=== PATIENT | male | born 1950 | race Caucasian/White ===

== ENCOUNTER 2018-11-28 10:00 | Inpatient (IN) ==
[2018-11-28] MEDS ORDERED: MAGNESIUM SULF RIDER 2 GM in PREMIX 1 EACH IV PRN ×2 (10:50→13:25)
[2018-11-28] MEDS ORDERED: ZALEPLON 5 MG CAPSULE PO PRN (10:50)
[2018-11-28] MEDS ORDERED: diphenhydrAMINE CAP 25 MG CAPSULE PO PRN (10:50)
[2018-11-28] MEDS ORDERED: PROMETHAZINE 25 MG TABLET PO PRN (10:50)
[2018-11-28] MEDS ORDERED: guaiFENesin/DM ER 600-30 MG TABLET PO PRN (10:50)
[2018-11-28] MEDS ORDERED: ACETAMINOPHEN 325 MG TABLET PO PRN (10:50)
[2018-11-28] MEDS ORDERED: ONDANSETRON 4 MG/2 ML VIAL IV PRN (10:50)
[2018-11-28] MEDS ORDERED: DOCUSATE SODIUM 100 MG CAPSULE PO PRN (10:50)
[2018-11-28] MEDS ORDERED: POTASSIUM CHLORIDE 20 MEQ TABLET PO PRN (10:50)
[2018-11-28] MEDS ORDERED: MORPHINE 4 MG/1 ML VIAL IV PRN (10:50)
[2018-11-28] MEDS ORDERED: MAGNESIUM SULF RIDER 4 GM in PREMIX 1 EACH IV PRN (10:50)
[2018-11-28 13:14] LABS: Basophils # 0.1 10*3/uL (0.0-0.2); Basophils % 0.7 % (0.0-0.8); Eosinophils # 0.1 10*3/uL (0.0-0.87); Eosinophils % 1.2 % (0.00-10.9); Hematocrit 45.5 VOL% (42.0-52.0); Hemoglobin 15.6 GM/DL (14.0-18.0); Immature Granulocytes % 0.9 %; Immature Granulocytes Absolute 0.07 #; Lymphocytes % 27.1 % (21.2-54.2); Mean Corpuscular HGB Conc 34.3 GM/DL (32-36); Mean Corpuscular Hemoglobin 34 PG (27-34); Mean Corpuscular Volume 100.4 FL (87-102); Mean Platelet Volume 9.2 FL (9.6-12.0); Monocytes # 0.9 10*3/uL (0.11-0.8); Monocytes % 12.1 % (1.7-12.7); Neutrophils # 4.3 10*3/uL (1.4-7.4); Platelet Count 184 T/CUMM (130-400); Red Blood Count 4.53 MC/CUMM (3.8-5.5); Red Cell Distribution Width 12.1 % (9.3-17.3); White Blood Count 7.5 T/CUMM (4-12)
[2018-11-28] MEDS ORDERED: POTASSIUM CHLORIDE RIDER 10 MEQ in PREMIX 1 EACH IV PRN (13:25)
[2018-11-28 13:34] LABS: Albumin 3.4 G/DL (3.4-5.0); Calcium 8.7 MG/DL (8.5-10.1); Osmolality,Calculated 263.7 MOS/KG (273-304); Potassium 3.8 MMOL/L (3.5-5.1); Total Protein 7.7 G/DL (6.4-8.3)
[2018-11-28 13:39] LABS: Troponin I 0.455 NG/ML (0.00-0.045)
[2018-11-28 13:42] LABS: Risk Ratio 3.79; Thyroid Stimulating Hormone 1.09 uIU/ml (0.358-3.74); VLDL CHOLESTEROL 30.4 MG/DL
[2018-11-28] MEDS: SODIUM CHLORIDE 0.45% 1,000 ML IV SCH (14:11)
[2018-11-28] MEDS ORDERED: HEPARIN/NACL 0.9% 2 UNITS/ML 1,000 ML IV ONE (14:22)
[2018-11-28] MEDS ORDERED: LIDOCAINE 1% 20 ML VIAL ONE (14:22)
[2018-11-28] MEDS ORDERED: DIAZEPAM 5 MG TABLET PO ONE (14:30)
[2018-11-28] MEDS: ALBUTEROL 2.5 MG/3 ML NEB RESP TX SCH ×2 (14:30→20:41)
[2018-11-28] MEDS ORDERED: diphenhydrAMINE CAP 25 MG CAPSULE PO ONE (14:30)
[2018-11-28] MEDS ORDERED: MIDAZOLAM 2 MG/2 ML VIAL ONE (15:11)
[2018-11-28] MEDS ORDERED: HYDROmorphone 2 MG/1 ML VIAL ONE (15:11)
[2018-11-28] MEDS ORDERED: MAGNESIUM SULF RIDER 50 ML IV ONE (15:11)
[2018-11-28] MEDS ORDERED: VERAPAMIL 5 MG/2 ML VIAL ONE (15:19)
[2018-11-28] MEDS ORDERED: NITROGLYCERIN DRIP 50 MG/250 ML BOTTLE IV ONE (15:19)
[2018-11-28] MEDS ORDERED: TICAGRELOR 90 MG TABLET ONE (15:36)
[2018-11-28] MEDS ORDERED: ASPIRIN 325 MG TABLET ONE (15:45)
[2018-11-28] MEDS ORDERED: BIVALIRUDIN 250 MG VIAL IV ONE (15:45)
[2018-11-28] MEDS ORDERED: HEPARIN/NACL 0.9% 2 UNITS/ML 500 ML IV ONE (16:28)
[2018-11-28] MEDS: INSULIN REGULAR 100 UNIT/ML SUBCUT SCH ×2 (16:34→21:00)
[2018-11-28] MEDS ORDERED: SODIUM CHLORIDE 0.9% 1,000 ML IV SCH (17:00)
[2018-11-28] MEDS ORDERED: hydrALAZINE 20 MG/1 ML VIAL ONE (17:04)
[2018-11-28] MEDS: MAGNESIUM OXIDE 400 MG TABLET PO SCH (21:00)
[2018-11-28] MEDS ORDERED: APIXABAN 5 MG TABLET PO SCH (21:00)
[2018-11-28] MEDS: CARVEDILOL 25 MG TABLET PO SCH (21:00)
[2018-11-28] MEDS: TICAGRELOR 90 MG TABLET PO SCH (21:00)
[2018-11-28 21:47] LABS: Apearance,Urine CLEAR (Clear); Bilirubin,Urine Negative (Negative); Blood, Urine Small mg/dL (Negative); Glucose,Urine (UA) Negative (Negative); Ketones,Urine Negative (Negative); Nitrite,Urine Negative (Negative); Protein,Urine Negative; RBC,Urine 5 /HPF (0-4); Urine Color Yellow (Yellow); Urine Urobilinogen < 2.0 EU/DL (0.2-1.0); WBC,Urine 1 /HPF (0-6)
[2018-11-29] MEDS: SODIUM CHLORIDE 0.45% 1,000 ML IV SCH ×3 (03:45→16:45)
[2018-11-29 04:49] LABS: Basophils % 0.4 % (0.0-0.8); Eosinophils # 0.2 10*3/uL (0.0-0.87); Eosinophils % 1.9 % (0.00-10.9); Hemoglobin 15.1 GM/DL (14.0-18.0); Immature Granulocytes % 1.1 %; Lymphocytes % 21.5 % (21.2-54.2); Mean Corpuscular HGB Conc 34.3 GM/DL (32-36); Mean Corpuscular Hemoglobin 35 PG (27-34); Mean Corpuscular Volume 100.5 FL (87-102); Mean Platelet Volume 9.6 FL (9.6-12.0); Monocytes % 11.1 % (1.7-12.7); Neutrophils # 5.9 10*3/uL (1.4-7.4); Platelet Count 177 T/CUMM (130-400); Red Blood Count 4.38 MC/CUMM (3.8-5.5); White Blood Count 9.2 T/CUMM (4-12)
[2018-11-29] MEDS: hydrALAZINE 20 MG/1 ML VIAL IV PRN ×2 (04:49→16:45)
[2018-11-29 05:09] LABS: Calcium 8.3 MG/DL (8.5-10.1); Osmolality,Calculated 260.7 MOS/KG (273-304); Potassium 3.8 MMOL/L (3.5-5.1)
[2018-11-29 05:13] LABS: CKMB % 6.1 %; Calcium 8.3 MG/DL (8.5-10.1); Osmolality,Calculated 256.9 MOS/KG (273-304); Potassium 3.8 MMOL/L (3.5-5.1)
[2018-11-29 05:16] LABS: Troponin I 13.3 NG/ML (0.00-0.045)
[2018-11-29 06:43] VITALS: BP 151/76
[2018-11-29] MEDS: ALBUTEROL 2.5 MG/3 ML NEB RESP TX SCH ×4 (07:08→19:44)
[2018-11-29] MEDS: CHOLECALCIFEROL 5,000 UNIT TABLET PO SCH (09:26)
[2018-11-29] MEDS: ASPIRIN EC 81 MG TABLET PO SCH (09:26)
[2018-11-29] MEDS: OLMESARTAN 20 MG TABLET PO SCH (09:27)
[2018-11-29] MEDS: sitaGLIPtin 100 MG TABLET PO SCH (09:28)
[2018-11-29] MEDS: POTASSIUM CHLORIDE 20 MEQ TABLET PO SCH (09:28)
[2018-11-29] MEDS: MAGNESIUM OXIDE 400 MG TABLET PO SCH ×2 (09:28→20:32)
[2018-11-29] MEDS: PANTOPRAZOLE 40 MG TABLET PO SCH (09:29)
[2018-11-29] MEDS: TICAGRELOR 90 MG TABLET PO SCH ×2 (09:29→20:31)
[2018-11-29] MEDS: CARVEDILOL 25 MG TABLET PO SCH ×2 (09:29→20:32)
[2018-11-29] MEDS: NON-FORMULARY MEDICATION (Umeclidinium Brm/Vilanterol Tr [Anoro Ellipta] 1 PUFF) INH SCH (09:31)
[2018-11-29] MEDS: INSULIN REGULAR 100 UNIT/ML SUBCUT SCH ×4 (10:49→20:32)
[2018-11-30] MEDS: ALBUTEROL 2.5 MG/3 ML NEB RESP TX SCH ×2 (06:53→10:44)
[2018-11-30 08:12] LABS: Basophils % 0.5 % (0.0-0.8); Eosinophils # 0.2 10*3/uL (0.0-0.87); Eosinophils % 2.3 % (0.00-10.9); Hematocrit 41.9 VOL% (42.0-52.0); Hemoglobin 14.3 GM/DL (14.0-18.0); Immature Granulocytes % 1.8 %; Immature Granulocytes Absolute 0.15 #; Lymphocytes # 2.2 10*3/uL (1.4-4.0); Mean Corpuscular HGB Conc 34.1 GM/DL (32-36); Mean Corpuscular Hemoglobin 34 PG (27-34); Mean Corpuscular Volume 100.2 FL (87-102); Mean Platelet Volume 9.6 FL (9.6-12.0); Monocytes # 1.2 10*3/uL (0.11-0.8); Monocytes % 13.7 % (1.7-12.7); Neutrophils # 4.8 10*3/uL (1.4-7.4); Neutrophils % 55.7 % (38.7-73.9); Platelet Count 171 T/CUMM (130-400); Red Blood Count 4.18 MC/CUMM (3.8-5.5); White Blood Count 8.6 T/CUMM (4-12)
[2018-11-30 08:34] LABS: Calcium 8.1 MG/DL (8.5-10.1); Osmolality,Calculated 252.4 MOS/KG (273-304); Potassium 3.8 MMOL/L (3.5-5.1)
[2018-11-30] MEDS: CHOLECALCIFEROL 5,000 UNIT TABLET PO SCH (08:40)
[2018-11-30] MEDS: PANTOPRAZOLE 40 MG TABLET PO SCH (08:40)
[2018-11-30] MEDS: OLMESARTAN 20 MG TABLET PO SCH (08:40)
[2018-11-30] MEDS: TICAGRELOR 90 MG TABLET PO SCH (08:40)
[2018-11-30] MEDS: POTASSIUM CHLORIDE 20 MEQ TABLET PO SCH (08:40)
[2018-11-30] MEDS: INSULIN REGULAR 100 UNIT/ML SUBCUT SCH ×2 (08:40→13:15)
[2018-11-30] MEDS: CARVEDILOL 25 MG TABLET PO SCH (08:40)
[2018-11-30] MEDS: sitaGLIPtin 100 MG TABLET PO SCH (08:40)
[2018-11-30] MEDS: MAGNESIUM OXIDE 400 MG TABLET PO SCH (08:40)
[2018-11-30] MEDS: ASPIRIN EC 81 MG TABLET PO SCH (08:40)
[2018-11-30] MEDS ORDERED: MAGNESIUM SULF RIDER 4 GM in PREMIX 1 EACH IV ONE (10:31)
[2018-11-30] MEDS: SODIUM CHLORIDE 0.45% 1,000 ML IV SCH ×2 (12:04→15:06)
[2018-11-30] MEDS: NON-FORMULARY MEDICATION (Umeclidinium Brm/Vilanterol Tr [Anoro Ellipta] 1 PUFF) INH SCH (12:04)
== END 2018-11-30 15:34 | disposition home or self-care (01) | DRG 247 ==
LOC: N.TELES → N.CC 17:06 → N.TELES 11-30 11:17 → N.CC 11-30 12:04
PROVIDERS: ADMIT Internal Medicine Cardiovascular Disease; ATTEND Internal Medicine Cardiovascular Disease
PROC: CLCCHCL (ICD-10-PCS; 2018-11-28 15:15)

== ENCOUNTER 2020-12-17 14:50 | Observation (INO) ==
[2020-12-17 15:29] LABS: Basophils % 0.5 % (0.0-0.8); Eosinophils # 0.1 10*3/uL (0.0-0.87); Eosinophils % 1.4 % (0.00-10.9); Hematocrit 49.3 VOL% (42.0-52.0); Hemoglobin 17.2 GM/DL (14.0-18.0); Immature Granulocytes % 1.1 %; Immature Granulocytes Absolute 0.08 #; Lymphocytes # 2.5 10*3/uL (1.4-4.0); Lymphocytes % 33.8 % (21.2-54.2); Mean Corpuscular HGB Conc 34.9 GM/DL (32-36); Mean Corpuscular Volume 101.6 FL (87-102); Mean Platelet Volume 9.6 FL (9.6-12.0); Monocytes % 9.6 % (1.7-12.7); Neutrophils % 53.6 % (38.7-73.9); Platelet Count 190 T/CUMM (130-400); Red Blood Count 4.85 MC/CUMM (3.8-5.5); Red Cell Distribution Width 12.3 % (9.3-17.3); White Blood Count 7.3 T/CUMM (4-12)
[2020-12-17 15:42] LABS: INR 1.1; PT Patient Result 12.1 SECS (9.8-11.9); Partial Thromboplastin Time 29.1 SECS (23.9-33.8)
[2020-12-17 16:23] LABS: Alanine Aminotransferase 28 U/L (16-61); Albumin 3.5 G/DL (3.4-5.0); Alkaline Phosphatase 79 U/L (45-117); Aspartate Amino Transferase 20 U/L (0-37); Blood Urea Nitrogen 19 MG/DL (7-18); Calcium 8.9 MG/DL (8.5-10.1); Carbon Dioxide 27 MMOL/L (21-32); Estimated Glom Filtration Rate 85 ML/MIN; Glucose 142 MG/DL (74-106); Osmolality,Calculated 269.4 MOS/KG (273-304); Potassium 4.5 MMOL/L (3.5-5.1); Sodium 133 MMOL/L (136-145); Thyroid Stimulating Hormone 0.868 uIU/ml (0.358-3.74); Total Protein 7.9 G/DL (5.0-7.5)
[2020-12-17 16:53] LABS: Barbiturates Screen,Urine Negative (Negative); Benzodiazepines Screen,Urine Negative (Negative); Cannabinoid Screen,Urine Negative (Negative); Opiate Screen,Urine Negative (Negative); Phencyclidine Screen,Urine Negative (Negative)
[2020-12-17 16:57] LABS: Bilirubin,Urine Negative (Negative); Blood, Urine Negative (Negative); Glucose,Urine (UA) Negative (Negative); Hyaline Casts,Urine 13 /LPF (0-3); Ketones,Urine Negative (Negative); Mucus,Urine Occasional /LPF (Occasional); Nitrite,Urine Negative (Negative); Protein,Urine Negative; RBC,Urine <1 /HPF (0-4); Squamous Epithelial Cell,Urine Occasional /HPF (0-10); Urine Appearance CLEAR (Clear); Urine Color Yellow (Yellow); Urine Specific Gravity 1.009 (1.001-1.035); WBC,Urine <1 /HPF (0-6)
[2020-12-17] MEDS ORDERED: ONDANSETRON 4 MG/2 ML VIAL IV PRN (18:14)
[2020-12-17] MEDS ORDERED: DEXTROSE 50% 25 GM/50 ML VIAL IV PRN ×2 (18:14→18:19)
[2020-12-17] MEDS ORDERED: ACETAMINOPHEN 325 MG TABLET PO PRN (18:14)
[2020-12-17] MEDS ORDERED: GLUCAGON 1 MG VIAL IM PRN (18:14)
[2020-12-17] MEDS ORDERED: LORazepam 2 MG/1 ML VIAL IV PRN (18:24)
[2020-12-17] MEDS: INSULIN REGULAR 100 UNIT/ML SUBCUT SCH (21:01)
[2020-12-17] MEDS: ASCORBIC ACID 500 MG TABLET PO SCH (21:02)
[2020-12-17] MEDS: GABAPENTIN 300 MG CAPSULE PO SCH (21:03)
[2020-12-17] MEDS: LACTULOSE 20 GM/30 ML UDCUP PO SCH (21:03)
[2020-12-17] MEDS: carvediloL 25 MG TABLET PO SCH (21:03)
[2020-12-17] MEDS: APIXABAN 5 MG TABLET PO SCH (21:03)
[2020-12-17] MEDS: MAGNESIUM OXIDE 400 MG TABLET PO SCH (21:03)
[2020-12-18] MEDS: ALBUTEROL 2.5 MG/3 ML NEB RESP TX SCH ×5 (00:29→19:32)
[2020-12-18 07:57] LABS: Basophils # 0.1 10*3/uL (0.0-0.2); Basophils % 0.8 % (0.0-0.8); Eosinophils # 0.1 10*3/uL (0.0-0.87); Eosinophils % 1.4 % (0.00-10.9); Hematocrit 49.4 VOL% (42.0-52.0); Hemoglobin 16.9 GM/DL (14.0-18.0); Immature Granulocytes % 1.2 %; Immature Granulocytes Absolute 0.09 #; Lymphocytes # 2.5 10*3/uL (1.4-4.0); Lymphocytes % 34.3 % (21.2-54.2); Mean Corpuscular HGB Conc 34.2 GM/DL (32-36); Mean Corpuscular Volume 103.1 FL (87-102); Mean Platelet Volume 9.6 FL (9.6-12.0); Monocytes % 11.5 % (1.7-12.7); Neutrophils % 50.8 % (38.7-73.9); Platelet Count 189 T/CUMM (130-400); Red Blood Count 4.79 MC/CUMM (3.8-5.5); Red Cell Distribution Width 12.3 % (9.3-17.3); White Blood Count 7.3 T/CUMM (4-12)
[2020-12-18 08:19] LABS: Albumin 3.3 G/DL (3.4-5.0); Bilirubin,Total 2.2 MG/DL (0.2-1.0); Calcium 8.9 MG/DL (8.5-10.1); Osmolality,Calculated 273.1 MOS/KG (273-304); Potassium 4.2 MMOL/L (3.5-5.1); Total Protein 7.6 G/DL (5.0-7.5)
[2020-12-18] MEDS: carvediloL 25 MG TABLET PO SCH ×2 (09:05→20:58)
[2020-12-18] MEDS: INSULIN REGULAR 100 UNIT/ML SUBCUT SCH ×4 (09:05→21:00)
[2020-12-18] MEDS: LACTULOSE 20 GM/30 ML UDCUP PO SCH ×3 (09:05→21:00)
[2020-12-18] MEDS: ASCORBIC ACID 500 MG TABLET PO SCH ×2 (09:06→21:01)
[2020-12-18] MEDS: APIXABAN 5 MG TABLET PO SCH ×2 (09:06→20:59)
[2020-12-18] MEDS: FOLIC ACID 1 MG TABLET PO SCH (09:06)
[2020-12-18] MEDS: THIAMINE 100 MG TABLET PO SCH (09:06)
[2020-12-18] MEDS: CHOLECALCIFEROL 5,000 UNIT TABLET PO SCH (09:06)
[2020-12-18] MEDS: POTASSIUM CHLORIDE 20 MEQ TABLET PO SCH (09:06)
[2020-12-18] MEDS: GABAPENTIN 300 MG CAPSULE PO SCH ×3 (09:06→20:58)
[2020-12-18] MEDS: MULTIVITAMIN (CENTRUM) TABLET PO SCH (09:06)
[2020-12-18] MEDS: PANTOPRAZOLE 40 MG TABLET PO SCH ×2 (09:07→09:19)
[2020-12-18] MEDS: LOSARTAN 50 MG TABLET PO SCH (09:07)
[2020-12-18] MEDS: MAGNESIUM OXIDE 400 MG TABLET PO SCH ×3 (09:07→20:58)
[2020-12-18] MEDS: ASPIRIN EC 81 MG TABLET PO SCH ×2 (09:07→09:17)
[2020-12-18] MEDS: NON-FORMULARY MEDICATION (Fluticasone-Umeclidin-Vilanter [Trelegy Ellipta] 100-62.5-25 mcg INH SCH (09:17)
[2020-12-19 06:49] LABS: Basophils # 0.1 10*3/uL (0.0-0.2); Basophils % 0.7 % (0.0-0.8); Eosinophils # 0.1 10*3/uL (0.0-0.87); Eosinophils % 1.5 % (0.00-10.9); Immature Granulocytes % 1.5 %; Immature Granulocytes Absolute 0.13 #; Lymphocytes # 2.5 10*3/uL (1.4-4.0); Lymphocytes % 27.8 % (21.2-54.2); Mean Corpuscular HGB Conc 33.3 GM/DL (32-36); Mean Corpuscular Volume 106.3 FL (87-102); Mean Platelet Volume 9.6 FL (9.6-12.0); Monocytes % 12.6 % (1.7-12.7); Neutrophils % 55.9 % (38.7-73.9); Platelet Count 194 T/CUMM (130-400); Red Cell Distribution Width 12.2 % (9.3-17.3)
[2020-12-19 07:27] LABS: Osmolality,Calculated 271.4 MOS/KG (273-304); Potassium 4.2 MMOL/L (3.5-5.1)
[2020-12-19] MEDS: ALBUTEROL 2.5 MG/3 ML NEB RESP TX SCH ×2 (07:41→10:46)
[2020-12-19] MEDS: carvediloL 25 MG TABLET PO SCH (09:00)
[2020-12-19] MEDS: INSULIN REGULAR 100 UNIT/ML SUBCUT SCH ×2 (09:00→12:07)
[2020-12-19] MEDS: LACTULOSE 20 GM/30 ML UDCUP PO SCH ×2 (09:00→09:03)
[2020-12-19] MEDS: MULTIVITAMIN (CENTRUM) TABLET PO SCH (09:00)
[2020-12-19] MEDS: ASCORBIC ACID 500 MG TABLET PO SCH (09:01)
[2020-12-19] MEDS: ASPIRIN EC 81 MG TABLET PO SCH ×2 (09:01→09:09)
[2020-12-19] MEDS: GABAPENTIN 300 MG CAPSULE PO SCH (09:01)
[2020-12-19] MEDS: MAGNESIUM OXIDE 400 MG TABLET PO SCH (09:01)
[2020-12-19] MEDS: FOLIC ACID 1 MG TABLET PO SCH ×2 (09:01→09:09)
[2020-12-19] MEDS: CHOLECALCIFEROL 5,000 UNIT TABLET PO SCH (09:01)
[2020-12-19] MEDS: LOSARTAN 50 MG TABLET PO SCH (09:01)
[2020-12-19] MEDS: POTASSIUM CHLORIDE 20 MEQ TABLET PO SCH (09:01)
[2020-12-19] MEDS: APIXABAN 5 MG TABLET PO SCH (09:02)
[2020-12-19] MEDS: PANTOPRAZOLE 40 MG TABLET PO SCH (09:02)
[2020-12-19] MEDS: THIAMINE 100 MG TABLET PO SCH (09:09)
[2020-12-19] MEDS: NON-FORMULARY MEDICATION (Fluticasone-Umeclidin-Vilanter [Trelegy Ellipta] 100-62.5-25 mcg INH SCH (09:09)
[2020-12-19 12:27] VITALS: BP 134/79
== END 2020-12-19 13:43 | disposition home health service (06) ==
LOC: N.EDINP 14:50 → N.ED 14:50 → N.TELES 19:23
PROVIDERS: ADMIT Internal Medicine; ATTEND Internal Medicine